=== PATIENT | female | born 1965 | race Caucasian/White ===

== ENCOUNTER 2020-07-09 14:44 | Emergency (ER) | payer MEDICAID ==
[~2020-07-09] VITALS: Ht 167.6 cm; Wt 104.3 kg
[~2020-07-09 14:44] MED LIST: FUR40T PO; NAPR500T31 PO; TRAM50TA2 PO
[2020-07-09 15:00] VITALS: BP 124/88
[2020-07-09] MEDS ORDERED: ACETAMINOPHEN 325 MG TAB PO ONE (16:15)
== END 2020-07-09 18:04 | disposition left against medical advice (07) ==
LOC: EDBD 14:44 → ER 14:51
DX: M79.604 Pain in right leg (principal); Z53.21 Procedure and treatment not carried out due to patient leaving prior to being seen by health care provider

== ENCOUNTER 2022-02-20 02:49 | Inpatient (IN) | payer MEDICAID ==
[~2022-02-20] VITALS: Ht 170.2 cm; Wt 139.0 kg
[2022-02-20 06:21] LABS: Basophils # (auto) 0.1 10 ^3/uL (0-0.2); Basophils % (auto) 0.7 % (0.0-2.0); Eosinophils # (auto) 0.1 10 ^3/uL (0-0.8); Eosinophils % (auto) 1.5 % (0.0-7.0); Hematocrit 42.7 % (36.0-46.0); Hemoglobin 14.1 g/dL (12.2-16.2); Lymphocytes % (auto) 21.9 % (10.0-50.0); Mean Corpuscular Hemoglobin 29.9 pg (28.0-32.0); Mean Corpuscular Volume 90.4 fL (80.0-100.0); Monocytes # (auto) 0.8 10 ^3/uL (0-1.3); Neutrophils # (auto) 6.2 10 ^3/uL (1.6-8.6); Neutrophils % (auto) 66.9 % (37.0-80.0); Nucleated Red Blood Cells % 0.1 %; Red Blood Cells 4.72 10^6/uL (4.0-5.20); Red Cell Distribution Width 14.9 % (11.8-14.3); White Blood Cell 9.3 10^3/uL (4.4-10.8)
[2022-02-20 06:33] LABS: Albumin 3.3 g/dL (3.4-5.0); Calcium 8.8 mg/dL (8.5-10.1); Potassium 4.5 mmol/L (3.5-5.1)
[2022-02-20 06:36] LABS: Bilirubin, Total 0.5 mg/dL (0.2-1.0); Total Protein 7.2 g/dL (6.4-8.2)
[2022-02-20] MEDS ORDERED: SODIUM CHLORIDE 0.9% 500 ML IV ONE (07:30)
[2022-02-20] MEDS ORDERED: CLINDAMYCIN 900MG IV 50 ML IV ONE (07:30)
[2022-02-20] MEDS ORDERED: SODIUM CHLORIDE 0.9% 1,000 ML IV ONE (07:30)
[2022-02-20] MEDS ORDERED: PIPERACILLIN-TAZOB 3.375GM 100 ML IV SCH (18:30)
[2022-02-20] MEDS: PIPERACILLIN-TAZOB 3.375GM 100 ML IV SCH (18:45)
[2022-02-20] MEDS ORDERED: DOCUSATE SOD 100 MG CAP PO PRN (18:45)
[2022-02-20] MEDS ORDERED: HYDROcodone-ACET 5/325MG TAB PO PRN (18:45)
[2022-02-20] MEDS ORDERED: MORPHINE SULFATE INJ 2 MG/ml SYRG IV PRN (18:45)
[2022-02-20] MEDS ORDERED: SODIUM CHLORIDE 0.9% 1,000 ML IV SCH (18:45)
[2022-02-20] MEDS ORDERED: ONDANSETRON HCL 4 MG/2 ML VIAL IV PRN (18:45)
[2022-02-20] MEDS ORDERED: VANCOMYCIN 1GM/250ML 250 ML IV ONE (19:45)
[2022-02-20] MEDS ORDERED: VANCOMYCIN PER PHARMACY 0 MG IV SCH (19:45)
[2022-02-20 22:07] VITALS: BP 155/92
[2022-02-20] MEDS ORDERED: ATEN25TA PO (22:28)
[2022-02-20] MEDS ORDERED: GABA300C10 PO (22:28)
[2022-02-20] MEDS ORDERED: METF-370 PO (22:28)
[2022-02-20] MEDS ORDERED: FUR20T PO (22:28)
[2022-02-20] MEDS ORDERED: PHEN-1148 PO (22:28)
[2022-02-20] MEDS ORDERED: POTA1TAB64 PO (22:28)
[2022-02-21] MEDS: PIPERACILLIN-TAZOB 3.375GM 100 ML IV SCH ×3 (01:59→21:06)
[2022-02-21 05:00] VITALS: BP 131/85
[2022-02-21 05:20] LABS: Basophils # (auto) 0.1 10 ^3/uL (0-0.2); Basophils % (auto) 0.5 % (0.0-2.0); Eosinophils # (auto) 0.2 10 ^3/uL (0-0.8); Eosinophils % (auto) 1.9 % (0.0-7.0); Hematocrit 43.6 % (36.0-46.0); Lymphocytes # (auto) 1.9 10 ^3/uL (0.4-5.4); Lymphocytes % (auto) 19.8 % (10.0-50.0); Mean Corpuscular Hemoglobin 29.5 pg (28.0-32.0); Mean Corpuscular Hgb Conc. 32.1 g/dL (32.0-36.0); Mean Corpuscular Volume 91.8 fL (80.0-100.0); Monocytes # (auto) 0.8 10 ^3/uL (0-1.3); Monocytes % (auto) 8.8 % (0.0-12.0); Neutrophils # (auto) 6.6 10 ^3/uL (1.6-8.6); Nucleated Red Blood Cells % 0.1 %; Red Blood Cells 4.75 10^6/uL (4.0-5.20); White Blood Cell 9.6 10^3/uL (4.4-10.8)
[2022-02-21 05:37] LABS: Calcium 8.5 mg/dL (8.5-10.1); Potassium 4.5 mmol/L (3.5-5.1)
[2022-02-21 05:43] LABS: BUN/Creatinine Ratio 13.9; Bilirubin, Total 0.7 mg/dL (0.2-1.0); Total Protein 6.9 g/dL (6.4-8.2)
[2022-02-21 09:00] VITALS: BP 146/78
[2022-02-21] MEDS: VANCOMYCIN 1GM/250ML 250 ML IV SCH ×2 (10:42→21:06)
[2022-02-21] MEDS: ENOXAPARIN SOD 40 MG/0.4 ML SYRINGE SC SCH (10:42)
[2022-02-21 13:00] VITALS: BP 149/84
[2022-02-21] MEDS ORDERED: DEXTROSE (50%) 50ML SYRG IV PRN (13:30)
[2022-02-21] MEDS: FUROSEMIDE 40 MG/4 ML VIAL IV SCH (14:30)
[2022-02-21] MEDS: ACCU-CHEK COMFORT CURVE STRIP VI SCH ×2 (16:23→22:06)
[2022-02-21] MEDS: InsuLIN REG 1unit/0.01ml Soln (100units/ml) SC SCH ×2 (16:33→22:09)
[2022-02-21] MEDS: GABAPENTIN 300 MG CAP PO SCH ×2 (16:33→21:06)
[2022-02-21 17:00] VITALS: BP 142/82
[2022-02-21 22:00] VITALS: BP 159/89
[2022-02-22] MEDS: ACETAMINOPHEN 325 MG TAB PO PRN ×2 (01:26→23:01)
[2022-02-22] MEDS: PIPERACILLIN-TAZOB 3.375GM 100 ML IV SCH ×3 (02:45→18:54)
[2022-02-22 04:51] VITALS: BP 137/70
[2022-02-22] MEDS: InsuLIN REG 1unit/0.01ml Soln (100units/ml) SC SCH ×4 (06:17→22:11)
[2022-02-22] MEDS: ACCU-CHEK COMFORT CURVE STRIP VI SCH ×4 (06:17→21:57)
[2022-02-22] MEDS: GABAPENTIN 300 MG CAP PO SCH ×3 (06:17→21:57)
[2022-02-22] MEDS: VANCOMYCIN 1GM/250ML 250 ML IV SCH ×2 (06:17→17:10)
[2022-02-22 06:39] LABS: Cholesterol 157 mg/dL (< 200); HDL Cholesterol 46 mg/dL (40-59); LDL Cholesterol 121 mg/dL (< 100); Triglycerides 68 mg/dL (< 150)
[2022-02-22 09:00] VITALS: BP 141/86
[2022-02-22] MEDS: ENOXAPARIN SOD 40 MG/0.4 ML SYRINGE SC SCH (10:05)
[2022-02-22] MEDS: POTASSIUM CHLORIDE 8 MEQ TAB PO SCH (10:20)
[2022-02-22] MEDS: ATENOLOL 25 MG TAB PO SCH (11:00)
[2022-02-22] MEDS: FUROSEMIDE 40 MG/4 ML VIAL IV SCH (11:00)
[2022-02-22 14:12] VITALS: BP 138/82
[2022-02-22 17:05] VITALS: BP 140/89
[2022-02-22 22:26] VITALS: BP 119/60
[2022-02-23] MEDS: PIPERACILLIN-TAZOB 3.375GM 100 ML IV SCH ×3 (02:45→17:27)
[2022-02-23] MEDS: VANCOMYCIN 1GM/250ML 250 ML IV SCH ×3 (02:57→21:43)
[2022-02-23 04:45] VITALS: BP 103/64
[2022-02-23] MEDS: GABAPENTIN 300 MG CAP PO SCH ×3 (06:00→21:45)
[2022-02-23] MEDS: InsuLIN REG 1unit/0.01ml Soln (100units/ml) SC SCH ×4 (06:46→22:38)
[2022-02-23] MEDS: ACCU-CHEK COMFORT CURVE STRIP VI SCH ×4 (06:53→22:37)
[2022-02-23 08:52] VITALS: BP 139/73
[2022-02-23] MEDS: POTASSIUM CHLORIDE 8 MEQ TAB PO SCH (09:48)
[2022-02-23] MEDS: FUROSEMIDE 40 MG/4 ML VIAL IV SCH (09:48)
[2022-02-23] MEDS: ATENOLOL 25 MG TAB PO SCH (09:48)
[2022-02-23] MEDS: ENOXAPARIN SOD 40 MG/0.4 ML SYRINGE SC SCH (09:58)
[2022-02-23] MEDS: DAKINS QUARTER STR 0.125% (NaHypochlorite) 473 ML TOPICAL SOL TOP SCH (12:35)
[2022-02-23 13:00] VITALS: BP 107/52
[2022-02-23 16:53] VITALS: BP 105/65
[2022-02-23 22:00] VITALS: BP 114/49
[2022-02-24] MEDS: PIPERACILLIN-TAZOB 3.375GM 100 ML IV SCH ×3 (03:14→17:41)
[2022-02-24 05:00] VITALS: BP 113/44
[2022-02-24] MEDS: GABAPENTIN 300 MG CAP PO SCH ×3 (06:07→22:44)
[2022-02-24] MEDS: ACCU-CHEK COMFORT CURVE STRIP VI SCH ×4 (06:16→22:45)
[2022-02-24] MEDS: ACETAMINOPHEN 325 MG TAB PO PRN (06:17)
[2022-02-24] MEDS: InsuLIN REG 1unit/0.01ml Soln (100units/ml) SC SCH ×4 (06:18→22:46)
[2022-02-24 08:08] VITALS: BP 102/47
[2022-02-24] MEDS: ATENOLOL 25 MG TAB PO SCH (10:00)
[2022-02-24] MEDS: ENOXAPARIN SOD 40 MG/0.4 ML SYRINGE SC SCH (10:08)
[2022-02-24] MEDS: VANCOMYCIN 1GM/250ML 250 ML IV SCH ×2 (10:08→22:44)
[2022-02-24] MEDS: FUROSEMIDE 40 MG/4 ML VIAL IV SCH (10:08)
[2022-02-24] MEDS: POTASSIUM CHLORIDE 8 MEQ TAB PO SCH (10:09)
[2022-02-24] MEDS: DAKINS QUARTER STR 0.125% (NaHypochlorite) 473 ML TOPICAL SOL TOP SCH (10:10)
[2022-02-24 11:39] VITALS: BP 116/48
[2022-02-24 17:00] VITALS: BP 109/59
[2022-02-24 22:00] VITALS: BP 119/75
[2022-02-25] MEDS: PIPERACILLIN-TAZOB 3.375GM 100 ML IV SCH ×2 (03:04→11:54)
[2022-02-25 05:00] VITALS: BP 114/57
[2022-02-25] MEDS: GABAPENTIN 300 MG CAP PO SCH ×2 (06:13→14:22)
[2022-02-25] MEDS: ACCU-CHEK COMFORT CURVE STRIP VI SCH ×2 (06:14→11:55)
[2022-02-25] MEDS: InsuLIN REG 1unit/0.01ml Soln (100units/ml) SC SCH ×2 (06:14→11:55)
[2022-02-25 07:04] LABS: Basophils # (auto) 0.1 10 ^3/uL (0-0.2); Basophils % (auto) 0.8 % (0.0-2.0); Eosinophils # (auto) 0.1 10 ^3/uL (0-0.8); Eosinophils % (auto) 1.4 % (0.0-7.0); Hematocrit 41.9 % (36.0-46.0); Hemoglobin 14.1 g/dL (12.2-16.2); Lymphocytes # (auto) 1.7 10 ^3/uL (0.4-5.4); Lymphocytes % (auto) 21.4 % (10.0-50.0); Mean Corpuscular Hemoglobin 30.5 pg (28.0-32.0); Mean Corpuscular Hgb Conc. 33.6 g/dL (32.0-36.0); Mean Corpuscular Volume 90.9 fL (80.0-100.0); Monocytes # (auto) 0.7 10 ^3/uL (0-1.3); Monocytes % (auto) 8.7 % (0.0-12.0); Neutrophils # (auto) 5.5 10 ^3/uL (1.6-8.6); Neutrophils % (auto) 67.7 % (37.0-80.0); Nucleated Red Blood Cells % 0.1 %; Red Blood Cells 4.61 10^6/uL (4.0-5.20); Red Cell Distribution Width 14.5 % (11.8-14.3); White Blood Cell 8.1 10^3/uL (4.4-10.8)
[2022-02-25 09:00] VITALS: BP 95/65
[2022-02-25] MEDS ORDERED: DOXY-346 PO (09:42)
[2022-02-25] MEDS: POTASSIUM CHLORIDE 8 MEQ TAB PO SCH (10:11)
[2022-02-25] MEDS: FUROSEMIDE 40 MG/4 ML VIAL IV SCH (10:11)
[2022-02-25] MEDS: ATENOLOL 25 MG TAB PO SCH (10:12)
[2022-02-25] MEDS: ENOXAPARIN SOD 40 MG/0.4 ML SYRINGE SC SCH (10:13)
[2022-02-25] MEDS: DAKINS QUARTER STR 0.125% (NaHypochlorite) 473 ML TOPICAL SOL TOP SCH (10:13)
[2022-02-25] MEDS: VANCOMYCIN 1GM/250ML 250 ML IV SCH (10:18)
[2022-02-25 13:00] VITALS: BP 112/70
[2022-02-25 13:07] VITALS: BP 125/56
== END 2022-02-25 16:28 | disposition home or self-care (01) | DRG 197 ==
LOC: ER 02:49 → OVERFLOW 18:43 → CENTRAL 21:55
PROVIDERS: ADMIT Internal Medicine; ATTEND Internal Medicine
DX: I87.2 Venous insufficiency (chronic) (peripheral) (principal); E11.21 Type 2 diabetes mellitus with diabetic nephropathy; L97.519 Non-pressure chronic ulcer of other part of right foot with unspecified severity; E11.621 Type 2 diabetes mellitus with foot ulcer; E11.65 Type 2 diabetes mellitus with hyperglycemia; E66.01 Morbid (severe) obesity due to excess calories; I10 Essential (primary) hypertension; M20.40 Other hammer toe(s) (acquired), unspecified foot; Z88.8 Allergy status to other drugs, medicaments and biological substances; Z79.899 Other long term (current) drug therapy; Z68.42 Body mass index [BMI] 45.0-49.9, adult; Z72.0 Tobacco use; Z71.6 Tobacco abuse counseling; Z79.84 Long term (current) use of oral hypoglycemic drugs
CPT/HCPCS: 36415; 71046; 73700; 80053; 80061; 80202; 82565; 82962; 83036; 83605; 83735; 85025; 87040; 87077; 87186; 87205; 93005; 93971; 96361; 96365; G0378; J1815; J2543; J3490

== ENCOUNTER 2022-03-04 23:11 | Emergency (ER) | payer MEDICAID ==
[~2022-03-04] VITALS: Ht 170.2 cm; Wt 150.0 kg
[~2022-03-04 23:11] MED LIST changes: +ATEN25TA PO; +DOXY-346 PO; +FUR20T PO; -FUR40T PO; +GABA300C10 PO; +METF-370 PO; -NAPR500T31 PO
[2022-03-05 00:57] LABS: Basophils # (auto) 0.1 10 ^3/uL (0-0.2); Basophils % (auto) 0.8 % (0.0-2.0); Eosinophils # (auto) 0.2 10 ^3/uL (0-0.8); Eosinophils % (auto) 2.4 % (0.0-7.0); Hematocrit 40.6 % (36.0-46.0); Hemoglobin 13.2 g/dL (12.2-16.2); Lymphocytes # (auto) 1.7 10 ^3/uL (0.4-5.4); Lymphocytes % (auto) 16.9 % (10.0-50.0); Mean Corpuscular Hemoglobin 29.6 pg (28.0-32.0); Mean Corpuscular Hgb Conc. 32.6 g/dL (32.0-36.0); Mean Corpuscular Volume 90.8 fL (80.0-100.0); Monocytes # (auto) 0.7 10 ^3/uL (0-1.3); Monocytes % (auto) 7.4 % (0.0-12.0); Neutrophils # (auto) 7.3 10 ^3/uL (1.6-8.6); Neutrophils % (auto) 72.5 % (37.0-80.0); Red Blood Cells 4.47 10^6/uL (4.0-5.20); Red Cell Distribution Width 14.5 % (11.8-14.3)
[2022-03-05 01:17] LABS: Albumin 2.7 g/dL (3.4-5.0); BUN/Creatinine Ratio 19.5; Calcium 8.8 mg/dL (8.5-10.1); Potassium 3.7 mmol/L (3.5-5.1)
[2022-03-05 01:19] LABS: Bilirubin, Total 0.4 mg/dL (0.2-1.0); Total Protein 6.6 g/dL (6.4-8.2)
[2022-03-05 05:59] VITALS: BP 135/80
[2022-03-05] MEDS ORDERED: CLINDAMYCIN 600MG IV 50 ML IV ONE (08:15)
[2022-03-05] MEDS ORDERED: PIPERACILLIN-TAZOB 3.375GM 100 ML IV ONE (08:15)
== END 2022-03-05 09:39 | disposition left against medical advice (07) ==
LOC: ER 23:11
DX: M86.8X7 Other osteomyelitis, ankle and foot (principal); I10 Essential (primary) hypertension; E11.9 Type 2 diabetes mellitus without complications; F17.210 Nicotine dependence, cigarettes, uncomplicated; Z79.2 Long term (current) use of antibiotics; Z79.899 Other long term (current) drug therapy; Z88.8 Allergy status to other drugs, medicaments and biological substances
CPT/HCPCS: 36415; 73700; 80053; 82962; 85025

== ENCOUNTER 2022-04-04 17:19 | Emergency (ER) | payer MEDICAID ==
[~2022-04-04] VITALS: Ht 170.2 cm; Wt 140.0 kg
[2022-04-04 17:19] VITALS: BP 129/80
[2022-04-04 20:13] LABS: Basophils # (auto) 0.1 10 ^3/uL (0-0.2); Basophils % (auto) 0.6 % (0.0-2.0); Eosinophils # (auto) 0.1 10 ^3/uL (0-0.8); Eosinophils % (auto) 0.7 % (0.0-7.0); Hematocrit 43.5 % (36.0-46.0); Hemoglobin 14.1 g/dL (12.2-16.2); Lymphocytes # (auto) 2.3 10 ^3/uL (0.4-5.4); Lymphocytes % (auto) 16.8 % (10.0-50.0); Mean Corpuscular Hemoglobin 28.9 pg (28.0-32.0); Mean Corpuscular Hgb Conc. 32.4 g/dL (32.0-36.0); Mean Corpuscular Volume 89.2 fL (80.0-100.0); Monocytes % (auto) 7.7 % (0.0-12.0); Neutrophils % (auto) 74.2 % (37.0-80.0); Nucleated Red Blood Cells % 0.1 %; Red Blood Cells 4.87 10^6/uL (4.0-5.20); Red Cell Distribution Width 14.5 % (11.8-14.3); White Blood Cell 13.4 10^3/uL (4.4-10.8)
[2022-04-04 20:28] LABS: Albumin 3.3 g/dL (3.4-5.0); BUN/Creatinine Ratio 14.4; Calcium 9.1 mg/dL (8.5-10.1); Potassium 4.3 mmol/L (3.5-5.1)
[2022-04-04 20:30] LABS: Bilirubin, Total 1.2 mg/dL (0.2-1.0); Total Protein 7.5 g/dL (6.4-8.2)
[2022-04-05 07:29] LABS: Urine Bacteria MOD /hpf (None Seen); Urine Blood Negative /uL (Negative); Urine Mucus FEW (None Seen); Urine Specific Gravity 1.023 (1.001-1.035); Urine WBC 152 /hpf (0 - 5)
[2022-04-05 07:51] LABS: Amphetamine Screen, Urine POSITIVE (NEGATIVE); Barbiturate Scree,Urine NEGATIVE (NEGATIVE); Benzodiazephine Screen, Urine NEGATIVE (NEGATIVE); Cannabinoid Screen, Urine NEGATIVE (NEGATIVE); Cocaine Screen, Urine NEGATIVE (NEGATIVE); Opiate Scree,Urine NEGATIVE (NEGATIVE)
[2022-04-05 07:58] LABS: Phencyclidine Screen, Urine NEGATIVE (NEGATIVE)
[2022-04-05] MEDS ORDERED: NITR-87 PO (08:24)
== END 2022-04-05 07:56 | disposition home or self-care (01) ==
LOC: ER 17:19 → EDBD 17:19 → ER 04-05 07:54
DX: N39.0 Urinary tract infection, site not specified (principal); E11.9 Type 2 diabetes mellitus without complications; I10 Essential (primary) hypertension; F17.210 Nicotine dependence, cigarettes, uncomplicated
CPT/HCPCS: 36415; 74176; 76856; 80053; 80307; 81001; 83605; 83690; 84484; 85025